=== PATIENT | male | born 1960 | race Caucasian/White ===

== ENCOUNTER → 2017-04-12 | Day surgery (SDC) | payer BC ==
[~2017-04-12] MED LIST: ANTIHISTAMINE25 M1 PO
--- NOTE | ~2017-04-12 | OR ---
Unit #: [id number] #: [id number] Patient: TYLER AMAYA [id number] [address] [address] [id number] MR#: [id number] NAME: TYLER AMAYA ROOM: Date of Procedure: 04/12/2017 Admission Date: 04/12/2017 Surgeon: Roly Bonilla M.D. : 1960 Attending Physician: Roly Bonilla M.D. Primary Care Physician: Tyler Witt M.D. OPERATIVE REPORT PROCEDURE PERFORMED Colonoscopy with snare polypectomy. INDICATIONS FOR PROCEDURE A 56-year-old gentleman average risk for colorectal cancer, here for screening colonoscopy. MEDICATIONS Monitored anesthesia. POSTOPERATIVE FINDINGS 1. Polyp, 5 mm, ascending colon, snared and sent for histopathology. 2. Polyp, 5 mm, sigmoid colon, snared and sent for histopathology. 3. Rest of the colon exam was normal. 4. Good prep. PLAN 1. Follow up on pathology report. 2. Repeat colonoscopy in 5 years. DESCRIPTION OF PROCEDURE The patient was explained of the procedure, risks, and benefits along with risks and benefits of anesthesia. He was brought to the endoscopy room. Propofol anesthesia was given. Rectal exam was done, which was normal. Colonoscope was lubricated, passed up the rectum, advanced under direct vision all the way to the cecum. Cecum was identified by ileocecal valve and appendiceal orifice. I then started to pull the scope out carefully looking. Two polyps were seen as described. I retroflexed in the rectum, small hemorrhoids seen. The scope was gently pulled out. He tolerated it well. Dictated by... Betty Pulido/christiano TD: 04/12/2017 16:21 JOB #: [id number] CC: Bob Rosales M.D. Unit #: [id number] #: [id number] Patient: TYLER AMAYA OPERATIVE REPORT Page 1 of 1 X Bonilla,Roly K MD X PROCEDURE OPERATIVE NOTE
== END | disposition home or self-care (01) ==
LOC: COPS 08:32 → EDBD 09:30 → COPS 09:30
DX: Z12.11 Encounter for screening for malignant neoplasm of colon (principal); D12.0 Benign neoplasm of cecum; K63.5 Polyp of colon; K64.9 Unspecified hemorrhoids; Z87.442 Personal history of urinary calculi; Z79.899 Other long term (current) drug therapy
CPT/HCPCS: 88305; J2250